=== PATIENT | female | born 1975 | race Caucasian/White ===

== ENCOUNTER 2022-11-08 18:06 | Emergency (ER) | payer SELFPAY ==
[~2022-11-08] VITALS: Ht 157.5 cm; Wt 81.6 kg
--- NOTE | 2022-11-08 18:15 | NUR ---
Attempted to triage pt, pt was not in ER waiting room or with her son in room 4a. Pt brought her son in as a pt earlier. Pt's states pt went out to smoke.
--- NOTE | 2022-11-08 18:30 | NUR ---
Pt c/o pain to upper back area, states she "slept wrong last night". No reported injury or trauma.
[2022-11-08] MEDS ORDERED: IBUPROFEN 600 MG TABLET ONE (18:51)
[2022-11-08] MEDS ORDERED: IBUPROFEN 600 MG TABLET PO ONE (19:00)
--- NOTE | 2022-11-08 19:33 | NUR ---
Patient discharged to home in stable condition. Written and verbal after care instructions given. Patient verbalizes understanding of instructions. Stressed follow up or return to ER for worsening s/s.
[2022-11-08 19:34] VITALS: BP 146/71
== END 2022-11-08 19:34 | disposition home or self-care (01) ==
LOC: ER 18:06
DX: R07.9 Chest pain, unspecified (principal); F17.210 Nicotine dependence, cigarettes, uncomplicated; Z82.49 Family history of ischemic heart disease and other diseases of the circulatory system; R03.0 Elevated blood-pressure reading, without diagnosis of hypertension
CPT/HCPCS: 71045; A4663